=== PATIENT | female | born 1965 | race Two or more races ===

== ENCOUNTER 2024-02-16 09:57 | Emergency (ER) | payer OTHER ==
[~2024-02-16] VITALS: Ht 160 cm; Wt 70.5 kg
[2024-02-16 10:02] VITALS: BP 158/84; PULSE 72; RESP 16; TEMP 98.2
[2024-02-16] MEDS: KETOROLAC TROMETHAMINE 60 MG/2 ML VIAL IM ONE (10:36)
[2024-02-16] MEDS: METHOCARBAMOL 500 MG TABLET PO ONE (10:36)
== END 2024-02-16 12:12 | disposition home or self-care (01) ==
LOC: EMS 09:57
DX: S16.1XXA Strain of muscle, fascia and tendon at neck level, initial encounter (principal); S29.012A Strain of muscle and tendon of back wall of thorax, initial encounter; X58.XXXA Exposure to other specified factors, initial encounter; Y93.89 Activity, other specified; Y92.89 Other specified places as the place of occurrence of the external cause; Y99.8 Other external cause status
CPT/HCPCS: 99283; 96372; J1885

== ENCOUNTER 2024-10-25 16:49 | Emergency (ER) | payer OTHER ==
[~2024-10-25] VITALS: Ht 167.6 cm; Wt 71.8 kg
[~2024-10-25 16:49] MED LIST: AMOX-457 PO
[2024-10-25 16:54] VITALS: TEMP 98.5
[2024-10-25] MEDS: KETOROLAC TROMETHAMINE 30 MG/ML VIAL IM ONE (17:44)
[2024-10-25 19:00] VITALS: BP 132/76; PULSE 75; RESP 18; O2SAT 100
== END 2024-10-25 19:24 | disposition home or self-care (01) ==
LOC: EMS 16:58
DX: M79.644 Pain in right finger(s) (principal); Z90.49 Acquired absence of other specified parts of digestive tract
CPT/HCPCS: 99283; 73140; 96372; J1885

== ENCOUNTER 2025-04-05 19:37 | Emergency (ER) | payer OTHER ==
[~2025-04-05] VITALS: Ht 165.1 cm; Wt 54.0 kg
[2025-04-05 21:23] LABS: PLATELET COUNT (AUTO) 224 K/uL (150-450); RED BLOOD CELL COUNT(AUTO) 4.70 MIL/uL (4.00-5.20); RED CELL DISTRIBUTION WIDTH 15.0 % (11.5-14.5); WHITE BLOOD COUNT (AUTO) 5.4 K/uL (4.5-11.0)
[2025-04-05 21:33] LABS: CALCIUM, TOTAL 8.7 mg/dL (8.8-10.5); CREATININE 1.08 mg/dL (0.60-1.30); GLOMERULAR FILTR. RATE CALC > 60 mL/min (>60); GLUCOSE,RANDOM 76 mg/dL (70-110); SODIUM SERUM 140 mmol/L (136-145); UREA NITROGEN, BLOOD 15 mg/dL (7-18)
[2025-04-05 21:42] LABS: LACTIC ACID 0.4 mmol/L (0.4-2.0)
[2025-04-05 21:46] LABS: TROPONIN I-HIGH SENSITIVITY 5 ng/L (<51)
[2025-04-05] MEDS: SODIUM CHLORIDE 0.9% 1,000 ML IV ONE (22:45)
[2025-04-05 23:40] LABS: ASPARTATE AMINOTRANSFERASE 16.0 U/L (15-37); TOTAL PROTEIN, SERUM 7.8 g/dL (6.4-8.2)
[2025-04-06] MEDS: FAMOTIDINE 20 MG/2 ML VIAL IVP ONE (00:36)
[2025-04-06] MEDS: METOCLOPRAMIDE HCL 5 MG/ML 2 ML VIAL IVP ONE (00:37)
[2025-04-06] MEDS ORDERED: ONDA-104 PO (00:44)
[2025-04-06] MEDS ORDERED: POLY17PO62 PO (00:44)
[2025-04-06] MEDS ORDERED: FAMO-290 PO (00:45)
[2025-04-06 01:14] VITALS: BP 121/63; PULSE 78; RESP 18; TEMP 98.8; O2SAT 99
== END 2025-04-06 01:59 | disposition home or self-care (01) ==
LOC: EMS 19:37
DX: K59.00 Constipation, unspecified (principal); R11.2 Nausea with vomiting, unspecified; Z90.49 Acquired absence of other specified parts of digestive tract
CPT/HCPCS: 99285; 96361; 76705; 71045; 80048; 80076; 83605; 83690; 84484; 85025; 36415; 93005; 96374; 96375; 74018; J2765; J7030; J3490